=== PATIENT | female | born 1965 | race African-American/Black ===

== ENCOUNTER → 2018-08-12 | Day surgery (SDC) | payer MEDICARE ==
[~2018-08-12] MED LIST: AMLO10TA8 PO; ASPI-630 PO; BUDE10.2 IH; CARV25TA2 PO; CHOL50003 PO; CLON1PAT TD; HYDR-2869 PO; INSU100I13 SQ; INSU100V11 IJ; IV RINGERS,LACTATED 1000ML 1,000 ML IV SCH; NPH,100V5 SQ; PROPOFOL 40 ML IV ONE
[2018-08-12 07:54] VITALS: BP 169/76
== END | disposition home or self-care (01) ==
LOC: SURG 06:29
PROVIDERS: ATTEND Internal Medicine Gastroenterology
DX: Z12.11 Encounter for screening for malignant neoplasm of colon (principal); K64.0 First degree hemorrhoids; J45.909 Unspecified asthma, uncomplicated; K21.9 Gastro-esophageal reflux disease without esophagitis; I12.9 Hypertensive chronic kidney disease with stage 1 through stage 4 chronic kidney disease, or unspecified chronic kidney disease; E11.22 Type 2 diabetes mellitus with diabetic chronic kidney disease; N18.9 Chronic kidney disease, unspecified; Z80.0 Family history of malignant neoplasm of digestive organs; Z79.899 Other long term (current) drug therapy; Z98.890 Other specified postprocedural states; Z98.51 Tubal ligation status; Z91.040 Latex allergy status; Z82.3 Family history of stroke; Z82.49 Family history of ischemic heart disease and other diseases of the circulatory system; Z80.41 Family history of malignant neoplasm of ovary; Z72.89 Other problems related to lifestyle; Z79.84 Long term (current) use of oral hypoglycemic drugs
CPT/HCPCS: 82962; G0121; J2704; 45378